=== PATIENT | male | born 1955 | race Caucasian/White ===

== ENCOUNTER 2024-10-05 11:48 | Emergency (ER) | payer OTHER, SELFPAY ==
[2024-10-05] VITALS (7 sets, daily range): BP systolic 106–138; BP diastolic 64–120; PULSE 68–86; RESP 14–95; TEMP 36.9–38.1; O2SAT 96–99; BMI 44.0
--- NOTE | 2024-10-05 11:53 | EKG_ITS ---
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
--- NOTE | 2024-10-05 12:03 | XR_ITS ---
Examination: AP lateral chest 2 views TECHNIQUE: Sitting AP lateral chest 2 views Date and time: October 05, 2024 1257 hours INDICATIONS: Chest pain today. FINDINGS: Early pneumonia in the right lower lobe Normal heart size The osseous structures are intact IMPRESSION: Right lower lobe pneumonia
--- NOTE | 2024-10-05 12:04 | PD.EDRME ---
Rapid Medical Screening Exam RME Arrival date/time: 10/05/24 11:48 68-year-old male with a history of hypertension, type 2 diabetes, BPH presents to the emergency room with a chief complaint of bilateral lower extremity swelling, shortness of breath x 4 days I have greeted and performed a focused initial assessment of this patient. A comprehensive ED assessment and evaluation of the patient, analysis of all test results, and completion of the medical decision making process will be conducted by additional ED providers. Chief Complaint: Shortness of Breath/Dyspnea Time Seen by Provider: 10/05/24 11:56 Vital signs: Vital Signs Temperature 100.5 F H 10/05/24 11:57 Pulse Rate 86 10/05/24 11:57 Respiratory Rate 20 10/05/24 11:57 Blood Pressure 106/64 10/05/24 11:57 Pulse Oximetry (%) 96 10/05/24 11:57 Oxygen Delivery Method Room Air 10/05/24 11:57 Vital signs reviewed by provider: Yes
[2024-10-05 12:38] LABS: Basophils # (Auto) 0.1 Thou/mm3 (0.0-0.2); Basophils % (Auto) 1 % (0-2.5); Eosinophils # (Auto) 0.4 Thou/mm3 (0.0-0.5); Eosinophils % (Auto) 4 % (0-10); Hematocrit 41.3 % (41.0-53.0); Hemoglobin 13.6 g/dL (13.5-16.0); Immature Granulocytes % (Auto) 1 % (0-0); Immature Granulocytes Auto 0.05 Thou/mm3 (0.00-0.00); Lymphocytes # (Auto) 1.8 Thou/mm3 (1.0-4.8); Lymphocytes % (Auto) 18 % (10-50); Mean Corpuscular HGB Conc 32.9 g/dl (31.0-37.0); Mean Corpuscular Volume 94 fL (80-100); Monocytes # (Auto) 0.5 Thou/mm3 (0.0-0.8); Monocytes % (Auto) 5 % (0-12); Neutrophils # (Auto) 6.9 Thou/mm3 (1.8-7.7); Neutrophils % (Auto) 72 % (37-80); Nucleated Red Blood Cell % 0 /100 WBC (0); Platelet Count 219 Thou/mm3 (140-440); RDW Standard Deviation 49.1 fL (35.1-43.9); Red Blood Count 4.39 Miln/mm3 (4.50-5.90); White Blood Count 9.7 Thou/mm3 (3.8-10.6)
[2024-10-05 12:53] LABS: Partial Thromboplastin Time 26.2 Seconds (22.0-36.0); Prothrombin Time 11.1 Seconds (9.0-12.2)
[2024-10-05 12:58] LABS: B-Type Natriuretic Peptide 102 pg/mL (0-100)
[2024-10-05 13:02] LABS: Alanine Aminotransferase 11 U/L (10-49); Albumin, Serum 4.3 gm/dL (3.4-4.8); Albumin/Globulin Ratio 1.8 (1.2-2.2); Alkaline Phosphatase 70 U/L (46-116); Anion Gap 11 (7-16); BUN/Creatinine Ratio 24 Ratio (12-20); Bilirubin,Total 0.3 mg/dL (0.3-1.2); Blood Urea Nitrogen 40 mg/dL (9-23); Calcium 10.1 mg/dL (8.3-10.6); Calcium (Corrected) 10.1 mg/dL (8.5-10.1); Carbon Dioxide 24.5 mMol/L (20.0-31.0); Chloride 102 mMol/L (98-107); Creatinine (Component) 1.7 mg/dL (0.6-1.3); Estimated Creatinine Clearance 63.8 mL/min (>60); Globulin 2.4 gm/dL (2.3-3.5); Glucose 167 mg/dL (74-106); Osmolality,Calculated 287 (275-295); Potassium 4.3 mMol/L (3.4-5.1); Sodium 137 mMol/L (136-145); Total Protein 6.7 gm/dL (5.7-8.2); Troponin I 0.026 ng/mL (0.0-0.045); eGFR 44 See Note
[2024-10-05 16:17] LABS: Collection Type, Urine Clean Catch
[2024-10-05 16:31] LABS: Amphetamine/Methamp Scrn,U Negative (Negative); Barbiturate Screen,Urine Negative (Negative); Benzodiazepines Screen,Urine Negative (Negative); Benzoylecgonine Screen, Ur Negative (Negative); Fentanyl Screen,Urine Negative (Negative); Opiate Screen,Urine Negative (Negative); THC Screen,Urine Positive (Negative)
[2024-10-05 16:35] LABS: Bilirubin,Urine Negative (Negative); Blood,Urine Negative (Negative); Clarity,Urine Clear (Clear/Hazy); Color,Urine Yellow (Lt Yel-Yel); Glucose, Urine 4+ (Negative); Hyaline Casts,Urine < 1 /hpf (0-1); Ketones,Urine Negative (Negative); Leukocyte Esterase,Urine Negative (Negative); Nitrite,Urine Negative (Negative); PH,Urine 5.5 (5.0-7.0); Protein,Urine Negative (Neg - Trace); RBC,Urine 2 /hpf (0-3); Specific Gravity,Urine 1.026 (1.001-1.035); Squamous Epithelial Cell,Urine 1 /hpf (0-5); Urobilinogen,Urine Negative mg/dL (0.0-1.0); WBC,Urine 2 /hpf (0-5)
[2024-10-05 19:01] LABS: Troponin I 0.026 ng/mL (0.0-0.045)
--- NOTE | 2024-10-05 19:12 | XR_ITS ---
Examination: CT brain head without contrast. 2-D sagittal coronal reconstructions Date and time of exam:October 05, 2024 1927 hours INDICATIONS: Syncopal episode today CTDI: vol (mGy):54.4 DLP: (mGycm):1089 Technique: Multiple CT axial sections of the brain have been obtained, 5 mm slice thickness. Contrast has not been administered. 2-D sagittal, coronal reconstructions have been obtained Low dose protocols were performed. One or more of the following dose reduction techniques were used; automated exposure control, adjustment of the mA and/or KV according to patient size, use of iterative reconstruction technique. Findings: No significant ventricular enlargement. Intra-axial or extra-axial hemorrhage density is not seen. No mass effect or midline shift Basal cisterns are not remarkable. Fourth ventricle is midline. Cranial vault intact. Impression: Negative for acute hemorrhage, mass effect or midline shift
--- NOTE | 2024-10-05 19:26 | XR_ITS ---
Examination: Venous duplex lower extremity sonogram, bilateral. Date and time of exam: October 05, 2024 2001 hours INDICATIONS: Bilateral leg swelling beginning one week ago Technique: Multiple sonographic images of the deep venous system have been obtained. B-mode/2-D grayscale imaging of vascular structures and Doppler spectral analysis (waveforms) and color performed Both legs are examined. Findings: Deep venous systems do not demonstrate abnormal echogenicity. All visualized deep veins exhibit compressibility. All visualized deep veins exhibit augmentation. Impression: Negative for deep vein thrombosis
[2024-10-05] MEDS: metOLazone 2.5 MG TABLET 5 MG PO (19:45)
[2024-10-05] MEDS: AZITHROMYCIN 250 MG TABLET 500 MG PO (19:45)
[2024-10-05 20:08] LABS: Lactate (Lactic Acid) 1.1 mMol/L (0.4-2.0)
[2024-10-05] MEDS: ALBUTEROL RT 2.5 MG/3 ML NEBU INH (20:25)
[2024-10-05 20:51] LABS: Procalcitonin 0.05 ng/ml (0.0-0.49); Troponin I 0.025 ng/mL (0.0-0.045)
--- NOTE | 2024-10-05 21:30 | PD.EDADULT ---
ED General RME/HPI General Chief complaint: Shortness of Breath/Dyspnea Stated complaint: NEW CHF SENT BY DR. JACKSON Time Seen by Provider: 10/05/24 11:56 Arrival date/time: 10/05/24 11:48 RME / HPI RME / HPI narrative: 10/05/24 11:48 68-year-old male with a history of hypertension, type 2 diabetes, BPH presents to the emergency room with a chief complaint of bilateral lower extremity swelling, shortness of breath x 4 days I have greeted and performed a focused initial assessment of this patient. A comprehensive ED assessment and evaluation of the patient, analysis of all test results, and completion of the medical decision making process will be conducted by additional ED providers. Related Data Home Medications ?Medication ?Instructions ?Recorded ?Confirmed metformin 500 mg tablet 500 mg PO QDAY #0 tabs 01/03/17 10/04/18 (Glucophage) nifedipine 60 mg tablet,extended 60 mg PO QDAY ##30 01/03/17 06/24/23 release (Nifedipine ER) tamsulosin 0.4 mg capsule 0.4 mg PO BID 03/02/18 10/04/18 benzonatate 100 mg capsule 100 mg PO Q8HR PRN Cough 06/24/23 06/24/23 bupropion HCl 150 mg tablet,12 hr 150 mg PO BID 06/24/23 06/24/23 sustained-release empagliflozin 25 mg tablet 25 mg PO QDAY 06/24/23 06/24/23 (Jardiance) gabapentin 300 mg capsule 300 mg PO BID 06/24/23 06/24/23 ibuprofen 800 mg tablet 800 mg PO Q8HR 06/24/23 06/24/23 Previous Rx's ?Medication ?Instructions ?Recorded albuterol sulfate 90 mcg/actuation 2 puff inhalation Q6H PRN 10/04/18 aerosol inhaler (Ventolin HFA) shortness of breath or wheezing #18 grams codeine 10 mg-guaifenesin 100 mg/5 5 ml PO Q6H PRN cough #120 mL 10/04/18 mL oral liquid (Cheratussin AC) ondansetron 4 mg disintegrating 4 mg PO Q8H PRN nausea and 06/23/23 tablet vomiting #10 tabs lisinopril 20 mg tablet 20 mg PO QDAY #30 tabs 06/25/23 azithromycin 250 mg tablet 250 mg PO QDAY 4 days #4 tabs 10/05/24 Allergies Allergy/AdvReac Type Severity Reaction Status Date / Time No Known Allergies Allergy Verified 10/05/24 11:52 Course Orders Category Date Time Status Professional Security Officer NOW Care 10/05/24 17:45 Active Continuous Pulse Oximetry NOW Care 10/05/24 17:44 Completed EKG (ED ONLY) *Do not use* NOW Care 10/05/24 11:53 Completed Insert IV NOW Care 10/05/24 17:[address] head/brain wo con Stat Exams 10/05/24 19:12 Completed EKG (ED Only) Stat Exams 10/05/24 11:53 Draft US venous doppler LE BI Stat Exams 10/05/24 19:26 Completed XR chest 2V Stat Exams 10/05/24 12:03 Completed B-Type Natriuretic Peptide Stat Lab 10/05/24 12:16 Completed Blood Culture (Lab) Stat Lab 10/05/24 19:11 Ordered CBC Stat Lab 10/05/24 12:16 Completed Comprehensive Metabolic Panel Stat Lab 10/05/24 12:16 Completed Drug Screen,Urine Stat Lab 10/05/24 15:50 Completed Lactate (Lactic Acid) Stat Lab 10/05/24 19:50 Completed Partial Thromboplastin Time Stat Lab 10/05/24 12:16 Completed Procalcitonin Stat Lab 10/05/24 19:50 Completed Prothrombin Time with INR Stat Lab 10/05/24 12:16 Completed Troponin I Stat Lab 10/05/24 12:16 Completed Troponin I Stat Lab 10/05/24 18:27 Completed Troponin I Stat Lab 10/05/24 19:50 Completed Urinalysis Stat Lab 10/05/24 15:50 Completed Urinalysis Stat Lab 10/05/24 17:46 Ordered ALBUTEROL RT 3ml [Proventil Rt 3ml] Med 10/05/24 17:48 Discontinued 2.5 mg INH X1 ONE Azithromycin Po [Zithromax PO] Med 10/05/24 19:13 Discontinued 500 mg PO X1 ONE Furosemide Inj [Lasix Inj] Med 10/05/24 17:44 Discontinued 40 mg IVP X1 ONE Nitroglycerin Oint 2% [Nitro-paste Oint 2%] Med 10/05/24 17:44 Discontinued 1 inch TOP X1 ONE metOLazone [Zaroxolyn] Med 10/05/24 17:47 Discontinued 5 mg PO X1 ONE Oxygen Delivery NOW RT 10/05/24 17:45 Active Vital Signs Vital signs: Vital Signs Temperature 100.5 F H 10/05/24 11:57 Pulse Rate 86 10/05/24 11:57 Respiratory Rate 20 10/05/24 11:57 Blood Pressure 106/64 10/05/24 11:57 Pulse Oximetry (%) 96 10/05/24 11:57 Oxygen Delivery Method Room Air 10/05/24 11:57 Discharge Plan Plan Patient Disposition: HOME (Self Care) Prescriptions/Referrals Prescriptions/Med Rec: New azithromycin 250 mg tablet 250 mg PO QDAY 4 Days Qty: 4 0RF Rx Instructions: start on day 2 of therapy No Action tamsulosin 0.4 mg capsule 0.4 mg PO BID metformin [Glucophage] 500 MG tablet 500 mg PO QDAY Qty: 0 nifedipine [Nifedipine ER] 60 MG tablet extended release 60 mg PO QDAY Qty: 30 codeine-guaifenesin [Cheratussin AC] 10-100 mg/5 mL liquid 5 ml PO Q6H PRN (Reason: cough) Qty: 120 0RF albuterol sulfate [Ventolin HFA] 90 mcg/actuation HFA aerosol inhaler 2 puff INH Q6H PRN (Reason: shortness of breath or wheezing) Qty: 18 0RF ondansetron 4 mg tablet,disintegrating 4 mg PO Q8H PRN (Reason: nausea and vomiting) Qty: 10 0RF Jardiance 25 mg tablet 25 mg PO QDAY benzonatate 100 mg capsule 100 mg PO Q8HR PRN (Reason: Cough) ibuprofen 800 mg tablet 800 mg PO Q8HR bupropion HCl 150 mg tablet sustained-release 12 hr 150 mg PO BID gabapentin 300 mg capsule 300 mg PO BID lisinopril 20 mg Tablet 20 mg PO QDAY Qty: 30 1RF Referrals: Fredo Jackson MD [Primary Care Provider] - In 1 week Problem List Clinical Impression: Pneumonia Patient/Caregiver Discharge Instructions Education Materials: ED Pneumonia (Adult) Print Language: Cambodian Stand Alone Forms: [facility] Award Info., Patient Portal Info Letter MDM Medication Administration(s) Medication Administration History Discontinued Medications Albuterol (Albuterol Rt 2.5 Mg/3 Ml Nebu) 2.5 mg INH X1 ONE Stop: 10/05/24 17:49 Last Admin: 10/05/24 20:25 Dose: 2.5 mg Documented By: SHIRA Azithromycin (Azithromycin 250 Mg Tablet) 500 mg PO X1 ONE Stop: 10/05/24 19:14 Last Admin: 10/05/24 19:45 Dose: 500 mg Documented By: DT Furosemide (Furosemide Inj 10 Mg/Ml 4ml Vial) 40 mg IVP X1 ONE Stop: 10/05/24 17:45 Last Admin: 10/05/24 20:21 Dose: Not Given Documented By: SE Non-Admin Reason: Cancelled by Provider Metolazone (Metolazone 2.5 Mg Tablet) 5 mg PO X1 ONE Stop: 10/05/24 17:48 Last Admin: 10/05/24 19:45 Dose: 5 mg Documented By: DT Nitroglycerin (Nitroglycerin Oint 2% 1 Inch Packet) 1 inch TOP X1 ONE Stop: 10/05/24 17:45 Last Admin: 10/05/24 20:21 Dose: Not Given Documented By: SE Non-Admin Reason: Cancelled by Provider
== END 2024-10-05 22:32 | disposition home or self-care (01) ==
PROVIDERS: Family Medicine; Nurse Practitioner Family; Emergency Provider Emergency Medicine; PCP Family Medicine
DX: J18.9 Pneumonia, unspecified organism (principal); R55 Syncope and collapse; M79.89 Other specified soft tissue disorders; R94.31 Abnormal electrocardiogram [ECG] [EKG]
CPT/HCPCS: 36415; 70450; 71046; 80053; 80307; 81001; 83605; 83880; 84145; 84484; 85025; 85610; 85730; 87040; 93005; 93970; 94640; 99284; A9270

== ENCOUNTER → 2024-11-12 | Outpatient (CLI) | payer OTHER, SELFPAY ==
[2024-11-12 16:29] LABS: Basophils # (Auto) 0.1 Thou/mm3 (0.0-0.2); Basophils % (Auto) 1 % (0-2.5); Eosinophils # (Auto) 0.3 Thou/mm3 (0.0-0.5); Eosinophils % (Auto) 4 % (0-10); Hematocrit 42.3 % (41.0-53.0); Hemoglobin 14.3 g/dL (13.5-16.0); Immature Granulocytes Auto 0.03 Thou/mm3 (0.00-0.00); Lymphocytes # (Auto) 2.2 Thou/mm3 (1.0-4.8); Lymphocytes % (Auto) 26 % (10-50); Mean Corpuscular HGB Conc 33.8 g/dl (31.0-37.0); Mean Corpuscular Hemoglobin 31.0 pg (25.0-35.0); Mean Corpuscular Volume 92 fL (80-100); Monocytes # (Auto) 0.5 Thou/mm3 (0.0-0.8); Monocytes % (Auto) 6 % (0-12); Neutrophils # (Auto) 5.5 Thou/mm3 (1.8-7.7); Neutrophils % (Auto) 63 % (37-80); Nucleated Red Blood Cell # 0.00 Thou/mm3 (0.00-0.00); Nucleated Red Blood Cell % 0 /100 WBC (0); Platelet Count 259 Thou/mm3 (140-440); RDW Standard Deviation 47.3 fL (35.1-43.9); Red Blood Count 4.61 Miln/mm3 (4.50-5.90); White Blood Count 8.7 Thou/mm3 (3.8-10.6)
[2024-11-12 16:51] LABS: Albumin, Serum 4.4 gm/dL (3.4-4.8); Anion Gap 13 (7-16); BUN/Creatinine Ratio 23 Ratio (12-20); Blood Urea Nitrogen 39 mg/dL (9-23); Calcium 9.8 mg/dL (8.3-10.6); Calcium (Corrected) 9.8 mg/dL (8.5-10.1); Carbon Dioxide 22.3 mMol/L (20.0-31.0); Chloride 104 mMol/L (98-107); Creatinine (Component) 1.7 mg/dL (0.6-1.3); Glucose 115 mg/dL (74-106); Osmolality,Calculated 287 (275-295); Phosphorous 4.3 mg/dL (2.4-5.1); Potassium 4.1 mMol/L (3.4-5.1); Sodium 139 mMol/L (136-145); eGFR 44 See Note
[2024-11-12 17:02] LABS: Glucose Estimated Average 151 mg/dL (80-131); Hemoglobin A1C 6.9 % Hgb (4.8-6.0)
== END | disposition home or self-care (01) ==
LOC: COPL 14:45
PROVIDERS: PCP Family Medicine; Referring Provider Family Medicine; Visit Provider Family Medicine
DX: D50.0 Iron deficiency anemia secondary to blood loss (chronic) (principal); E11.65 Type 2 diabetes mellitus with hyperglycemia; Z13.1 Encounter for screening for diabetes mellitus
CPT/HCPCS: 36415; 80069; 83036; 85025